=== PATIENT | male | born 1970 | race Caucasian/White ===

== ENCOUNTER 2022-02-15 12:41 | Emergency (ER) | payer OTHER ==
[2022-02-15] MEDS ORDERED: Lidocaine 1% 5 ML VIAL INJECT ONE (13:30)
[2022-02-15] MEDS ORDERED: Bacitracin Oint 1 GM U/D Packet TOP ONE (13:35)
== END 2022-02-15 14:00 | disposition home or self-care (01) ==
LOC: JP.ED 12:41
DX: S61.254A Open bite of right ring finger without damage to nail, initial encounter (principal); W54.0XXA Bitten by dog, initial encounter
CPT/HCPCS: 12001; 99283